=== PATIENT | female | born 1960 | race Caucasian/White ===

== ENCOUNTER 2024-08-05 19:26 | Emergency (ER) | payer BC, OTHER | END 2024-08-05 21:02 | disposition home or self-care (01) | LOC: MW.ED 19:26 | DX: R10.11 Right upper quadrant pain (principal); R10.31 Right lower quadrant pain; Z79.899 Other long term (current) drug therapy; Z88.2 Allergy status to sulfonamides; Z88.8 Allergy status to other drugs, medicaments and biological substances | CPT/HCPCS: 99283 ==

== ENCOUNTER 2024-10-29 10:43 | Emergency (ER) | payer BC ==
[2024-10-29] MEDS: Morphine 2 MG/ML SYRINGE IVPUSH ONE ×2 (11:12→13:48)
== END 2024-10-29 15:25 | disposition home or self-care (01) ==
LOC: MW.ED 10:43
DX: S82.141A Displaced bicondylar fracture of right tibia, initial encounter for closed fracture (principal); Z88.2 Allergy status to sulfonamides; Z88.8 Allergy status to other drugs, medicaments and biological substances; Z79.899 Other long term (current) drug therapy; Z79.82 Long term (current) use of aspirin; Z75.8 Other problems related to medical facilities and other health care; W18.39XA Other fall on same level, initial encounter; Y93.89 Activity, other specified
CPT/HCPCS: 73560; 73590; 73600; 73700; 96374; 96376; 99284; J2270; 99283